=== PATIENT | female | born 1965 | race Caucasian/White ===

== ENCOUNTER 2016-10-03 07:46 | Day surgery (SDC) | payer OTHER ==
[~2016-10-03] VITALS: Ht 160 cm; Wt 60.8 kg
[~2016-10-03 07:46] MED LIST: 0.9% Sodium Chloride 1,000 ML IV SCH; ALBU18HF INH; CHOL100045 PO; Sodium Chloride LOK Flush 10 mL Syringe IV PRN; fentaNYL-PF 50 mCg/mL 2 mL Inj IVPUSH PRN
[2016-10-03] MEDS ORDERED: MULT-666 PO (08:07)
[2016-10-03 08:10] VITALS: BP 117/80; PULSE 78; RESP 14; O2SAT 100
[2016-10-03 08:56] VITALS: BP 111/56; PULSE 76; RESP 15; O2SAT 93
[2016-10-03 09:06] VITALS: BP 103/67; PULSE 77; RESP 16; O2SAT 99
--- NOTE | 2016-10-03 18:31 | ENDO ---
[address] [address] ENDOSCOPY PROCEDURE PATIENT: HUMAIRA HUBBARD : 1965 MR#: [id number] ADMIT: 10/03/2016 JOB ID: [id number] PRIMARY PROVIDER: Aruna Camejo MD. PROCEDURE: Colonoscopy with hot snare polypectomy. INDICATIONS: A 51-year-old female who reports for colon cancer screening. EQUIPMENT: PCF-H180AL. SEDATION: 5 mg Versed and 100 mcg fentanyl. COMPLICATIONS: None identified. BOWEL PREPARATION: Fair, adequate exam. PROCEDURE INFORMATION: After the risks and benefits were explained, written and verbal informed consent was obtained, the patient was brought into the endoscopy suite and placed into the left lateral decubitus position. Sedation was achieved as above. A digital rectal examination accomplished. No significant pathology appreciated. Minimal internal hemorrhoids. The scope was introduced into the rectum and advanced to the cecum as identified by the appendiceal orifice and ileocecal valve. The scope was slowly withdrawn to carefully examine the mucosa for any defects or lesions. Multiple direct views were made through the dentate line for exclusion of pathology. The colon was decompressed, the scope removed from the patient who tolerated the procedure well. FINDINGS: There was some early mild diverticulosis in the sigmoid region. In the transverse there was a small, perhaps 5 mm polyp removed with hot snare. No other significant pathology was appreciated throughout. ENDOSCOPIC DIAGNOSES: 1. Early diverticulosis. 2. Polyp. 3. Mild hemorrhoids. RECOMMENDATIONS: 1. Await histopathology. 2. If this is confirmed adenomatous, repeat colonoscopy five years.
--- NOTE | 2016-10-05 16:18 | PATH ---
SURGICAL PATHOLOGY Attending Physician:Ariel Chaney CASE STATUS: Signed Out PATIENT NAME: HUMAIRA HUBBARD PID: [id number] : 1965 DATE COLLECTED:10/03/2016 15:57 SPECIMEN: Colon, Polyp CLINICAL HISTORY: 1. TRANSVERSE POLYP X1 FINAL DIAGNOSIS: Transverse Colon Polyp, Biopsy: Portions of sessile serrated adenoma x2. ICD10: K63.5 GROSS DESCRIPTION: Received in formalin, labeled with the patient's name and "trans" are two fragments of contreras soft tissue ranging in size from 0.1 x 0.1 x 0.1. cm to 0.2 x 0.1 x 0.1 cm. All fragments are totally submitted in one cassette. ([id number]) ICD-9 CODES: CPT CODES: 1: 18370 Electronically Signed Out Mirna Pruett MD [facility] Pathology [facility] [address], [place] [address] Technical component performed at [facility], [facility] [address], [place], [address]
== END 2016-10-03 23:59 | disposition home or self-care (01) ==
LOC: END 07:46
PROVIDERS: ATTEND Internal Medicine Gastroenterology
DX: Z12.11 Encounter for screening for malignant neoplasm of colon (principal); D12.3 Benign neoplasm of transverse colon; K57.30 Diverticulosis of large intestine without perforation or abscess without bleeding; K64.8 Other hemorrhoids; Z85.3 Personal history of malignant neoplasm of breast
CPT/HCPCS: 45385; 99153; G0500; J2250; J3010; J7030